=== PATIENT | male | born 1970 | race Caucasian/White ===

== ENCOUNTER 2022-06-19 06:54 | Day surgery (SDC) | payer MEDICARE, MEDICAID, SELFPAY ==
--- NOTE | 2022-06-19 08:06 | PCM.HP.BLA ---
History and Physical Allergies doxycycline Allergy (Severe, Verified 06/06/22 10:04) Anaphylaxiszinc oxide Allergy (Intermediate, Verified 06/06/22 10:04) rashcefazolin Allergy (Verified 06/06/22 10:04) Swellingenoxaparin [From Lovenox] Allergy (Verified 06/06/22 09:34) PT UNSURE OF REACTIONvancomycin Allergy (Verified 06/06/22 09:34) PT UNSURE OF REACTION Medications clopidogrel 75 mg tablet (Plavix) 75 mg PO DAILY 06/05/22 [History Confirmed 06/05/22] diltiazem HCl 60 mg capsule,extended release 12 hr 30 mg PO ONCE daily 06/06/22 [History Confirmed 06/06/22] oxycodone 10 mg tablet 10 mg PO Q8H PRN pain 5 days #15 tabs 06/06/22 [Rx Confirmed 06/06/22] rivaroxaban 20 mg tablet (Xarelto) 20 mg PO DAILY 06/06/22 [History Confirmed 06/06/22] PFSH Medical History? Amputation of right lower extremity below knee Arthritis Atrial flutter Blood circulation, collateral Cellulitis Deep vein blood clot of left lower extremity (~09/2019) Dvt femoral (deep venous thrombosis) (~12/2020) Lymphedema Tachycardia Venous insufficiency of left leg Surgical History? History of ankle surgery History of back surgery (~2004) History of hand surgery (~06/2006) History of inferior vena caval filter placement (~2004) S/P IVC filter (~10/2019) Status post laser ablation of incompetent vein (~12/2021) Family History? Daughter Bleeding disorderOther CHF (congestive heart failure) Social History? Smoking Status:? Current every day smoker alcohol intake:? current HPI HPI HPI: ANALI THACKER, is a 52 M who presents to the office today to establish care, well known to me from prior venous occlusive disease s/p iliac vein and IVC stenting. Overall he is doing well, thigh remains soft and without new tightness/edema. His lower leg has some increased pain/tightness below the knee but at baseline toward ankle. Continues to follow with wound care with no new infection concerns. He is on Xarelto and Plavix without any difficulty. Last venogram was a little over a year ago, last intervention about 1.5-2 years ago. ROS General General: Yes weight change and fatigue; No appetite, colon cancer, breast cancer or weakness HEENT HEENT: No difficulty swallowing, eye injury, eye surgery, swollen glands or hoarseness Endo Endocrine: No thyroid disease, diabetes mellitus, thyroid cancer, Hair loss, heat intolerance or cold intolerance Skin Skin: Yes rash; No changing moles Musc Musculoskeletal: Yes back problems and arthritis; No rheumatoid arthritis, gout or joint pain Cardio Cardiovascular: Yes atrial fibrillation; No murmur, pacemaker, heart disease, high blood pressure, heart attack, heart stent, palpitations, shortness of breat with exertion or chest pain Psych Psychiatric: No depression, anxiety or hearing voices Resp Respiratory: No shortness of breath, No sleep apnea, No cough, No COPD, No asthma, No emphysema and No wheezing Gastro Gastrointestinal: No abdominal pain, No nausea or vomiting, No diarrhea, No constipation, No blood in stool, No acid reflux, No hemorrhoids, No ulcers, No gallbladder problem and No black,tarry stools Tuan Hematologic: Yes blood thinners, No blood disorders, No bleeding, No anemia and Yes blood clots Neuro Neurologic: No system reviewed and no additional complaints, except as documented, No as per HPI, No abnormal gait, No abnormal hearing, No abnormal movements, No abnormal speech, No behavioral changes, No burning sensations, No confusion, No convulsions, No disequilibrium, No dizziness, No localized weakness, No frequent falls, No headache(s), No lack of coordination, No loss of vision, No memory loss, No numbness, No other visual disturbances, No radicular pain, No restless legs, No sensory deficit, No syncope, No tingling, No tremor(s), No weakness and No other Exam Const General: cooperative, healthy appearing, comfortable, no acute distress and well developed Nutritional Appearance: well nourished Orientation: alert, awake and oriented x3 HENMT Head: normocephalic and atraumatic Ears: hearing grossly normal bilaterally Nose: external nose normal Eyes General: appearance normal, both eyes and all related structures EOM: EOM intact bilaterally Neck Neck: normal visual inspection, full ROM, no lymphadenopathy and trachea midline Thyroid: thyroid normal Lymphatic: no lymphadenopathy noted Resp Effort & Inspection: normal respiratory effort, able to speak in complete sentences, symmetric chest movement, no audible wheezes, not labored, no stridor and no use of accessory muscles Auscultation: clear to auscultation bilaterally Cardio Rate: regular rate Rhythm: regular rhythm Heart Sounds: no murmurs Bruits: no carotid bruits Pulses: brachial pulses present and radial pulses present Skin General: no erythema Wounds: amputation site (prior right BKA) Other: left lower leg thickened skin with induration superiorly, no purulence, no erythema Neuro Cranial Nerves: CN's II-XI intact bilaterally and EOM intact bilaterally Speech: speech normal Gait: normal gait Motor: strength 5/5 throughout Sensory Exam: no sensory deficits noted Extremities Lower Extremity Edema: +3: Left Veins: Left: Lipodermatosclerosis Psych Appearance: grossly normal and well kempt Mental Status: mental status grossly normal Mood: congruent mood Speech and Movement: speech and movement normal Thought Content: normal Judgment: judgment good Coding Level of Care Code Off vis,est,level 3 Diagnoses Venous insufficiency of left leg? I87.2 Assessment and Plan Assessment and Plan (1) Venous insufficiency of left leg: ?Status:?Chronic ?Plan: -increase in tightness/edema; previously this had indicated stent stenosis/occlusion -will plan venogram, possible intervention
--- NOTE | 2022-06-19 09:21 | OP.PCM_ITS ---
Report of Operation Date of Procedure: 06/19/22 Pre-Operative Diagnosis: Venous insufficiency with ulceration of the left lower extremity Post-Operative Diagnosis: Same; patent previously placed iliac and vena cava stents. Surgery/Procedure Performed:: Inferior vena cava and left iliac venogram Intravascular ultrasound assessment inferior vena cava, left common iliac vein, left external iliac vein Surgeon: Jackson Wade Type of Anesthesia: Local and Sedation,Conscious Estimated Blood Loss (mL): 5 Description of Procedure: HPI: Patient is a 52-year-old male with longstanding chronic venous insufficiency bilateral lower extremities. He previously underwent recanalization and stenting of the inferior vena cava and the bilateral common and external iliac veins. He is required reintervention of the left external iliac vein in the past due to short segment stent reocclusion. He recently has developed worsening left lower extremity pain and edema similar to previous episodes were his stents had been compromised. He is taken now for venogram and possible invention. Description of procedure: Upon obtaining form consent and verification correct patient procedure site patient was taken the [employer] where he was positioned prepped and draped in usual sterile fashion. Time was then performed and conscious sedation administered with intermittent doses of Versed and fentanyl. Under ultrasound guidance left common femoral vein was assessed and found to be patent. Skin was anesthetized 1% lidocaine and ultrasound used to access with a micropuncture needle and wire in retrograde fashion. This was exchanged for micropuncture sheath through which hand-injection ilio caval venogram was performed which revealed brisk contrast transit across the previously stented areas and radiographically widely patent stents. Through the micropuncture sheath a glide advantage wire was advanced in the inferior vena cava under fluoroscopic guidance and the micropuncture sheath exchanged out for an 8 [place] sheath. Patient was then heparinized with 8000 units of heparin and allowed to circulate for 3 minutes. Through the 8 [place] sheath and intravascular ultras ound probe was advanced into the inferior vena cava cephalad to the prior IVC filter. Digital recorded pullback was performed beginning in the suprarenal IVC, and image obtained throughout the IVC, left common iliac vein, left external iliac vein. The inferior vena cava was patent and normal caliber, and the IVC filter had no visualized evidence of prior embolic debris. The inferior vena cava stents inferior to the filter were widely patent with no in-stent restenosis and good wall apposition throughout. The left common iliac vein stent was widely patent with no in-stent stenosis and no compression. The left external iliac vein stent was widely patent with no in-stent restenosis or compression. At the transition from the external iliac to the common femoral vein there was some mild compression of the stent that had been placed for the reocclusion which had been noted at the time of stent implantation 2 years prior. Still has no significant luminal compromise. At this point ultrasound catheter was withdrawn and the wire and sheath removed with manual pressure held for 15 minutes. Patient was reversed with 30 mg of protamine and was taken to the recovery room for 2 hours of bedrest and anticipated discharge home. Complications None
== END 2022-06-19 13:00 | disposition home or self-care (01) ==
PROVIDERS: PCP Family Medicine; Referring Provider Surgery Trauma Surgery; Visit Provider Surgery Trauma Surgery
DX: I87.2 Venous insufficiency (chronic) (peripheral) (principal); Z89.511 Acquired absence of right leg below knee; L97.929 Non-pressure chronic ulcer of unspecified part of left lower leg with unspecified severity; I48.92 Unspecified atrial flutter; M19.90 Unspecified osteoarthritis, unspecified site; F17.200 Nicotine dependence, unspecified, uncomplicated; Z79.01 Long term (current) use of anticoagulants; Z79.02 Long term (current) use of antithrombotics/antiplatelets; Z86.718 Personal history of other venous thrombosis and embolism
CPT/HCPCS: 36010; 37252; 37253; 75825; 76937; 99152; 99153; C1769; J7030; Q9967; C1894

== ENCOUNTER → 2023-12-24 | Outpatient (CLI) | payer MEDICARE, MEDICAID, SELFPAY ==
--- NOTE | 2023-12-24 09:04 | AAVD_ITS ---
Reason For Study: HX IVC and CIV Stents Inferior Vena Cava Mid inferior vena cava measures 1.83 x 2.06 cm. in the cross-sectional axis. Mid inferior vena cava measures 1.97 cm. in the longitudinal axis. Unable to visualize Proximal and Distal IVC. Phasic flow detected within IVC but only able to visualize at mid vessel. Left Common Iliac Vein Left common iliac vein measures 1.16 x 1.28 cm. in the cross-sectional axis. Left common iliac vein measures 1.4 cm. in the longitudinal axis. The left common iliac vein has spontaneous, phasic flow throughout. Right Common Iliac Vein Right common iliac vein measures 1.33 x 1.21 cm. in the cross-sectional axis. Right common iliac vein measures 1.46 cm. in the longitudinal axis. The right common iliac vein has spontaneous, phasic flow throughout. Procedure Aorta IVC Iliac vasculature or bypass grafts [id number]. The exam was of poor technical quality due to body habitus and bowel gas. Limited views obtained. Exam performed in department. VL/Abd Aortic/IVC Duplex scan Interpretation Summary Patent IVC and bilateral iliac vein stents. Limited study due to bowel gas and body habitus Ordering Physician: Tiffanie Harris Referring Physician: Mandeep Woodward Performed By: Santos Schuster RVT
== END | disposition home or self-care (01) ==
PROVIDERS: PCP Family Medicine; Referring Provider Physician Assistant; Visit Provider Physician Assistant
DX: I82.409 Acute embolism and thrombosis of unspecified deep veins of unspecified lower extremity (principal); I87.1 Compression of vein
CPT/HCPCS: 93978

== ENCOUNTER → 2024-12-27 | Outpatient (CLI) | payer MEDICARE, SELFPAY ==
--- NOTE | 2024-12-27 08:59 | AAVD_ITS ---
Reason For Study Reason For Study: HX CIV/ IVC Stents Inferior Vena Cava Unable to visualize Prox IVC due to bowel gas and body habitus. Mid inferior vena cava measures 1.81 x 1.66 cm. in the cross-sectional axis. Mid inferior vena cava measures 2.08 cm. in the longitudinal axis. Distal inferior vena cava measures 1.33 cm. in the longitudinal axis. Unable to visualize flow in Prox and mid IVC. Flow is visualized in pulsed wave doppler at Dist IVC with LE augmentation. Left Common Iliac Vein Left common iliac vein measures 0.80 x 0.75 cm. in the cross-sectional axis. Flow is visualized in pulsed wave doppler at Lt CIV w/ LLE augmentation. Right Common Iliac Vein Right common iliac vein measures 0.97 x 1.00 cm. in the cross-sectional axis. Flow is visualized in pulsed wave doppler at Rt CIV with RLE augmentation. Procedure Aorta IVC Iliac vasculature or bypass grafts [id number]. The exam was of poor technical quality due to body habitus / bowel gas. Limited Views Obtained. Exam performed in department. VL/Abd Aortic/IVC Duplex scan Interpretation Summary Inferior vena cava and bilateral iliac vein stents patent. Poorly visualized due to body habitus and bowel gas. Ordering Physician: Tiffanie Harris Referring Physician: Mandeep Woodward Performed By: Santos Schuster RVT
== END | disposition home or self-care (01) ==
LOC: CVS 08:57
PROVIDERS: PCP Family Medicine; Referring Provider Physician Assistant; Visit Provider Physician Assistant
DX: I87.1 Compression of vein (principal); I82.409 Acute embolism and thrombosis of unspecified deep veins of unspecified lower extremity; Z48.812 Encounter for surgical aftercare following surgery on the circulatory system
CPT/HCPCS: 93978